=== PATIENT | female | born 1950 | race Caucasian/White ===

== ENCOUNTER 2017-04-11 11:31 | Outpatient (CLI) | payer OTHER ==
--- NOTE | 2017-04-11 13:52 | MMO ---
BILATERAL SCREENING MAMMOGRAMS: FINDINGS: 03-05-16, 08-17-14 FINDINGS: This study is interpreted with the assistance of computer aided detection. Breast tissues are heterogeneously dense which may reduce the sensitivity of mammography. There are a few benign calcifications seen. No suspicious mass or calcification is identified. Bilateral ===== l rubens are stable. IMPRESSION: BIRADS category 2 - benign findings. Continued annual screening mammogram recommended. POS: [facility]
--- NOTE | 2017-04-12 07:30 | MMO ---
BILATERAL DIGITAL SCREENING MAMMOGRAMS WITH CAD: FINDINGS: Comparison is made with exams of 03/05/16 and 08/17/14. The breast tissue is heterogeneously dense which may reduce the sensitivity of mammography. A few be nign calcifications are seen. No suspicious mass or calcification identified. Bilateral implants ar e stable. IMPRESSION: BI-RADS category 2 - benign findings. Return to annual mammographic screening. BIRADS 2: Benign Finding(s) Routine annual screening mammography (for women over age 40) POS: [facility]
== END 2017-04-11 11:32 | disposition home or self-care (01) ==
LOC: SCSMAMMO 11:31
PROVIDERS: ATTEND Obstetrics & Gynecology
DX: Z12.31 Encounter for screening mammogram for malignant neoplasm of breast (principal)
CPT/HCPCS: 77067

== ENCOUNTER 2018-04-28 09:00 | Outpatient (CLI) | payer MEDICARE ==
--- NOTE | 2018-04-28 17:52 | MMO ---
BILATERAL DIGITAL SCREENING MAMMOGRAM: Date: 04/28/18 HISTORY: Annual digital screening mammography. FINDINGS: Comparison made to previous exam from 04/11/17. Images were also performed using computer-aided detection. Images demonstrate fibroglandular tissue seen in both breasts. No definite evidence of masses or lesi ons seen. No evidence of architectural distortion seen. Bilateral subpectoral breast calcifications s een. IMPRESSION: BIRADS 2: Benign Finding(s) POS: [facility]
== END 2018-04-28 09:01 | disposition home or self-care (01) ==
LOC: SCSMAMMO 09:00
PROVIDERS: ATTEND Obstetrics & Gynecology
DX: Z12.31 Encounter for screening mammogram for malignant neoplasm of breast (principal)
CPT/HCPCS: 77067

== ENCOUNTER 2018-06-30 14:43 | Outpatient (CLI) | payer MEDICARE ==
--- NOTE | 2018-06-30 15:39 | BD ---
BONE DENSITOMETRY: INDICATION: A 68-year-old female for postmenopausal osteoporosis screening. FINDINGS: Lumbar Spine: BMD (g/cm2) L1 0.868 T-Score: -1.2 L2 0.813 T-Score: -2.0 L3 0.808 T-Score: -2.5 L4 0.941 T-Score: -1.1 L1-L4 0.859 T-Score: -1.7 Total lumbar density from 03/05/2016 recorded at 0.814. Femoral Neck: 0.599 T-Score: -2.3 Total Femur: 0.768 T-Score: -1.4 Total femur density from 03/05/2016 recorded at 0.734. Impression: Bone mineral density of the lumbar spine and femoral neck both indicate osteopenia. TEN-YEAR FRACTURE RISK: Major osteoporotic fracture: 23%. Hip fracture: 5.4%. POS: [facility]
== END 2018-06-30 14:44 | disposition home or self-care (01) ==
LOC: BICMAMMO 14:43
PROVIDERS: ATTEND Obstetrics & Gynecology
DX: Z13.820 Encounter for screening for osteoporosis (principal); M85.89 Other specified disorders of bone density and structure, multiple sites
CPT/HCPCS: 77080

== ENCOUNTER 2020-11-24 | Outpatient (CLI) | payer MEDICARE | END 2020-11-24 15:17 | disposition home or self-care (01) ==